=== PATIENT | male | born 1985 | race Caucasian/White ===

== ENCOUNTER 2022-01-23 03:28 | Emergency (ER) | payer BC, SELFPAY ==
[2022-01-23 03:45] VITALS: BP 134/75; PULSE 97; RESP 16; TEMP 37.1; O2SAT 98; BMI 34.2
[2022-01-23 05:19] VITALS: BP 129/75; PULSE 84; RESP 14; O2SAT 97
--- NOTE | 2022-01-23 12:39 | ED.EXTPRO ---
HPI - Extremity Problem General Chief complaint: Extremity Injury, Upper Stated complaint: lymph node infection Time Seen by Provider: 01/23/22 12:33 History of Present Illness HPI Narrative: Patient complains of left armpit abscess for the last several days which started draining pus today, denies fever denies vomiting Related Data Previous Rx's Medication Instructions Recorded cephalexin 500 mg tablet 500 mg PO QID 7 days #28 tabs 01/23/22 ibuprofen 600 mg tablet 600 mg PO Q6H PRN pain #20 tabs 01/23/22 oxycodone 5 mg tablet 5 mg PO Q6H PRN pain #10 tabs 01/23/22 sulfamethoxazole 800 1 tab PO BID 3 days #6 tabs 01/23/22 mg-trimethoprim 160 mg tablet (Bactrim DS) Allergies Allergy/AdvReac Type Severity Reaction Status Date / Time No Known Allergies Allergy Unverified 03/05/20 16:21 [No Known Allergies*] Review of Systems Review of Systems: Positive for left axilla redness swelling and Passy discharge as well as pain Negatives no fever no chills no dizziness or weakness no fainting no feeling faint no headache no neck pain no chest pain no difficulty breathing no shortness of breath no other rash PMFSH Past Medical History Source: nursing notes reviewed Social History Social History Advance Directives: No Advance Directives Information Provided: Yes Physical Exam Vital Signs: Vital Signs: Last Vital Signs Temp 98.8 F 01/23/22 14:37 Pulse 87 01/23/22 14:37 Resp 20 01/23/22 14:37 BP 119/76 01/23/22 14:37 Pulse Ox 95 01/23/22 14:37 O2 Del Method 01/23/22 14:37 BMI result Body Mass Index 34.2 General appearance is no acute distress Head is normocephalic atraumatic Neck is supple Respiratory no distress Extremities full range of motion x4 Skin the left axilla has an area of redness fluctuance and tenderness that is draining pus there is mild surrounding erythema, there is full range of motion in the shoulder Course Course Course Narrative: Procedure note left axilla abscess is cleansed and irrigated with Betadine, anesthesia is 10 cc 1% lidocaine, a small incision was made and pus was drained from the wound, probed with forceps to break up loculations and packing was placed bandage applied Patient felt significant relief after draining large quantity of pus Discharge Plan Discharge Clinical Impression: Abscess of axilla, left Patient Disposition: Home, Self-Care Additional Instructions: Packing was placed in the abscess cavity and this needs to be removed in 2 days so return to the ER in 2 days for packing removal wound check Return any time for worse pain and swelling, fever, spreading redness, any sign of worsening infection any worse condition or any concerns I added a 2nd antibiotic which covers different bacteria called Keflex, it is always a good idea to take probiotics with antibiotics to prevent diarrhea As you will run out of the Bactrim tomorrow I added 3 extra days of Bactrim so you will have coverage after the drainage was done Prescriptions: New cephalexin 500 mg tablet 500 mg PO QID 7 Days Qty: 28 0RF ibuprofen 600 mg tablet 600 mg PO Q6H PRN (Reason: pain) Qty: 20 0RF sulfamethoxazole-trimethoprim [Bactrim DS] 800-160 mg tablet 1 tab PO BID 3 Days Qty: 6 0RF oxycodone 5 mg tablet 5 mg PO Q6H PRN (Reason: pain) Qty: 10 0RF Rx Instructions: Partial Fill upon patient request. Narcotic, no driving for 6 hours after taking this medication Stand Alone Forms: Work/School Release Interventions: ED Discharge Assessment Last Done: 01/23/22 14:54 Discharge Date/Time: 01/23/22 14:55
[2022-01-23 13:24] VITALS: BP 132/71; PULSE 79; RESP 20; TEMP 36.9; O2SAT 96
[2022-01-23] MEDS: Lidocaine HCl 1 % MPF 2 ML VIAL INFILTRATI ×2 (13:44→14:38)
[2022-01-23 14:37] VITALS: BP 119/76; PULSE 87; RESP 20; TEMP 37.1; O2SAT 95
[2022-01-23] MEDS: Lidocaine HCl 1 % MPF 2 ML VIAL 6 ML INFILTRATI (14:39)
--- NOTE | 2022-01-23 14:44 | PC.NURSE ---
Pharmacy instructed to not use ampule of lidocaine
== END 2022-01-23 14:55 | disposition home or self-care (01) ==
PROVIDERS: Emergency Provider Emergency Medicine
DX: L02.412 Cutaneous abscess of left axilla (principal)
CPT/HCPCS: 10060; 87071; 87077; 87186; 87205; 99284